=== PATIENT | female | born 2000 | race Caucasian/White ===

== ENCOUNTER 2023-05-11 21:22 | Inpatient (IN) | payer OTHER, SELFPAY ==
[2023-05-11 21:27] VITALS: BMI 22.8
[2023-05-11 21:30] VITALS: BP 118/84; PULSE 86; RESP 18; TEMP 36.9; O2SAT 99
[2023-05-11] MEDS: traZODone HCL 50 MG TABLET PO (23:28)
[2023-05-11] MEDS: hydrOXYzine HCL 25 MG TABLET PO (23:28)
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
--- NOTE | 2023-05-11 23:52 | PC.NURSE ---
PT refuses annual flu vaccine.
--- NOTE | 2023-05-11 23:54 | PC.NURSE ---
loan approver and skin check completed with Eugenia Little RN. No skin concerns, no contraband found.
--- NOTE | 2023-05-11 23:54 | PC.NURSE ---
PT given opportunity to obtain phone numbers @ admission. PT understands phone will be locked away until discharge.
[2023-05-12 06:00] VITALS: BP 103/59; PULSE 99; RESP 18; TEMP 36.2; O2SAT 100
[2023-05-12 07:58] LABS: Estimated Average Glucose 97 mg/dL
--- NOTE | 2023-05-12 08:45 | HO.PSYADMNOT ---
HPI Date of Service: 05/12/23 Chief Complaint: Major depressive d/o, singeepisode, severe Sources of Information: patient interviewed, chart reviewed and crisis/core team assessment reviewed HPI Subjective Notes: Mckay Warning (given and shows understanding) and Conditional Voluntary Narrative: Ms. Magaña is a 22 year-old woman who self presented to [facility] due to increase depression, suicidal ideation with plan to ingest 99% rubbing alcohol. Pt reported no particular trigger but feeling like nobody loves me enough. Pt reports hx of self injurious behaviors (cutting) up until the age of 16. Utox was negative. This is her first inpatient psychiatric admission. On the unit, pt presents with a bright affect. She reports she has been in a caregiver role, caring for her sister, and friends. She reports no one cares for me. She endorses feelings of emptiness. She reports she has been reading about her symptoms and thinks she has more than depression. Pt reports she enjoys school and loves her career. She reports she feels she needs to be the center of attention and when this doesn't happen, she feels in distress. She denies feeling depressed but anxious. She reports feeling even more anxious when there is no structure and she does not know what to expect. She denies Hx of VH/AH. Pt reports sleeping well. Past Psychiatric History: Inpatient: none OP: none Past trial: lexapro Hx of suicide attempt: none Medical Evaluation Reviewed: Yes [facility] Family History: none Social History: Pt raised by parents. She has younger sister. Currently senior at [employer] Substance History: None Trauma History: denies Diagnostics Vital Signs (24Hr): Vital Signs - 24 hr 05/11/23 21:30 Temperature 98.4 F Pulse Rate 86 Respiratory Rate 18 Blood Pressure 118/84 Pulse Oximetry 99 Oxygen Delivery Method Room Air BMI result Body Mass Index 22.8 Labs 05/12/23 07:20 Labs: Laboratory Results - last 48 hr 05/12/23 07:20 Estimat Average Glucose 97 Hemoglobin A1c % 5.0 Meds/Allergies Meds Home Medications Medication Instructions Recorded Confirmed Type albuterol sulfate 90 mcg/actuation 1 puff inhalation Q4H PRN 05/11/23 05/11/23 History aerosol inhaler Bronchospasm escitalopram oxalate 10 mg tablet 10 mg PO DAILY 09/30/23 09/30/23 History Allergies Allergies Allergy/AdvReac Type Severity Reaction Status Date / Time amoxicillin Allergy Hives Verified 05/11/23 21:27 Mental Status Exam Mental Status Exam Narrative: Appearance:casually groomed, good hygiene, in NAD Behavior: cooperative, overly friendly Psychomotor: no agitation or retardation noted Speech: clear, normal rate/rhythm, spontaneous TP: linear TC: no s/s of psychosis, overwhelmed but feeling better Mood: better Affect: bright, slightly expansive Si: denies HI: denies VH/AH: none Delusions: none Insight/judgment: fair x 2. Memory/cog: alert, oriented x 3. Assessment & Plan Assessment & Plan (1) Borderline personality disorder in adult: Status: Acute Code(s): F60.3 - Borderline personality disorder Plan Ms. Magaña is a 22 year-old woman who describes symptoms of chronic sense of emptiness, mood deregulation, fear of abandonment, feelings of rejection when not the center of attention. She denies feeling depressed and today denies any thoughts of wanting to harm herself but also reports this can change fairly quickly. She endorses anxiety in context of anticipated sense of rejection or abandonment. She reports she has been reading and does not feel her condition is just depression. We discussed characteristics of BPD, which pt appears to identify with. R/O Bipolar Dirsorder type 2. We discussed risks, benefits and alternative treatment options, we discussed starting lamictal for mood deregulation. We also discussed importance of psychotherapy interventions like DBT for self-regulation, decrease self harm. PLAN 1. Admit to M5, CV, 15 minutes checks 2. Start lamictal 25mg po qhs 3. obtain collateral information 4. Aftercare planning Patient educated on: diagnosis and medication risk/benefits Reason for continued inpatient stay Substantial Risk for: harm to self Statement Statement: I have reviewed the history and physical and performed a pertinent examination on my patient. No changes have occurred unless specified. If the History and Physical was not performed prior to admission, the Hospitalist's service will be consulted for completing the admission physical. Time Spent With Patient Time: Total time managing care of this patient today ____ minutes.
[2023-05-12] MEDS: Escitalopram Oxalate 10 MG TABLET PO (09:01)
[2023-05-12] MEDS: Nicotine Polacrilex Lozenge 2 MG LOZENGE BUCCAL ×3 (09:42→20:33)
[2023-05-12] MEDS: hydrOXYzine HCL 25 MG TABLET PO ×2 (10:10→19:42)
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
[2023-05-12 12:17] LABS: Alanine Aminotransferase 13 U/L (0-31); Albumin Level 4.6 g/dL (3.5-5.0); Alkaline Phosphatase 61 U/L (39-117); Anion Gap 16 (12-20); Aspartate Amino Transferase 19 U/L (5-31); Blood Urea Nitrogen 10 mg/dL (9-16); Calcium 9.5 mg/dL (8.4-10.2); Carbon Dioxide 23 mmol/L (22-29); Chloride 105 mmol/L (96-108); Cholesterol 123 mg/dL (<200); Creatinine Clr Calc Pharmacy 105.4; Estimated Glomerular Filt Rate > 60; Folate 14.2 ng/mL (> or = 4.0); Glucose Fasting 91 mg/dL (60-99); HDL Cholesterol 61 mg/dL (>40); LDL Cholesterol Calculated 51 mg/dL (<100); Potassium 3.9 mmol/L (3.3-5.1); Sodium 140 mmol/L (135-145); Thyroid Stimulating Hormone 0.89 uIU/mL (0.32-4.0); Total Protein 7.7 g/dL (6.5-8.0); Triglycerides 55 mg/dL (<150); Vitamin B12 611 pg/mL (200-900)
[2023-05-12 16:30] VITALS: BP 117/57; PULSE 72; TEMP 36.5
[2023-05-12] MEDS: lamoTRIgine 25 MG TABLET PO (19:42)
[2023-05-12] MEDS: traZODone HCL 50 MG TABLET PO (23:56)
[2023-05-13] MEDS: Escitalopram Oxalate 10 MG TABLET PO (09:20)
[2023-05-13 09:25] VITALS: BP 116/70; PULSE 106; RESP 18; TEMP 36.4; O2SAT 100
[2023-05-13] MEDS: hydrOXYzine HCL 25 MG TABLET PO ×2 (12:20→19:08)
[2023-05-13] MEDS: Nicotine Polacrilex Lozenge 2 MG LOZENGE BUCCAL (17:06)
[2023-05-13 18:00] VITALS: BP 118/81; PULSE 94; RESP 18; TEMP 36.8; O2SAT 98
--- NOTE | 2023-05-13 18:25 | HO.PSYCHPN ---
Subjective Subjective Date of Service: 05/13/23 Reason For Visit: Major depressive d/o, singeepisode, severe Subjective Notes: Conditional Voluntary Healthcare Proxy: No Guardianship: No Medical Problems Affecting Mental Status: No Interim History: Pt reivewed history of symptoms and illness, med trials and concerns about navigation of my life with a mental illness . Struggles with the feelings that no one cares, family she believes has been emotionally neglectful and her response to this deprivation has been to over extend and give of herself and lacking ability to receive. Review of meds, discussed prn for anxiety. Will trial Olanzapine low dose for added mood stabilization. Pt interested in DBT, OP work. Will prepare DBT literature for her review. Medication Compliance: Yes Side effects from medications: No Attending Groups: Yes Review of Systems Acute medical concerns: No Medical Review of Systems: unchanged Mental Status Exam Mental Status Exam Patient Appearance: Appropriate Patient Orientation: Person, Place, Time and Situation Level of Consciousness: Alert Patient Behavior: Appropriate, Talkative, Cooperative and Good Eye Contact Mood Description: Anxious and Expansive Affect Description: Anxious Patient Cognition Impaired: No Ability to Follow Directions: Good Speech Pattern: Spontaneous Speech Memory Description: Intact Hallucinations: None Thought Process: Goal Oriented Thought Content: positive for Goal Oriented Depressive Symptoms: Increased Anxiety and Thoughts of /Suicide (denies) Judgement: Good Diagnostics Vital Signs (24Hr): Vital Signs - 24 hr 05/13/23 09:25 Temperature 97.6 F Pulse Rate 106 H Respiratory Rate 18 Blood Pressure 116/70 Pulse Oximetry 100 Oxygen Delivery Method Room Air BMI result Body Mass Index 22.8 Labs 05/12/23 07:20 Labs: Laboratory Results - last 48 hr 05/12/23 07:20 Sodium 140 Potassium 3.9 Chloride 105 Carbon Dioxide 23 Anion Gap 16 BUN 10 Creatinine 0.79 Estim Creat Clear Calc 105.4 Estimated GFR > 60 Fasting Glucose 91 Estimat Average Glucose 97 Hemoglobin A1c % 5.0 Calcium 9.5 Total Bilirubin 1.0 AST 19 ALT 13 Alkaline Phosphatase 61 Total Protein 7.7 Albumin 4.6 Triglycerides 55 Cholesterol 123 LDL Cholesterol, Calc 51 HDL Cholesterol 61 Vitamin B12 611 Folate 14.2 TSH 0.89 Medications Medications Current Medications Acetaminophen (Acetaminophen 325 Mg Tablet) 650 mg PO Q6H PRN PRN Reason: Headache/Pain Mild Scale (1-3) Al Hydroxide/Mg Hydroxide (Magnesium Hydrox/Alum Hydrox 30 Ml Oral.Susp) 30 ml PO Q6H PRN PRN Reason: Heartburn/Nausea Albuterol Sulfate (Albuterol Sulfate 90 Mcg 8 Gm Inhaler) 1 puff INHALE Q4H PRN PRN Reason: Bronchospasm Escitalopram Oxalate (Escitalopram Oxalate 10 Mg Tablet) 10 mg PO BEDTIME SHEILA Hydroxyzine HCl (Hydroxyzine Hcl 25 Mg Tablet) 25 mg PO Q6H PRN PRN Reason: Anxiety Last Admin: 05/13/23 12:20 Dose: 25 mg Lamotrigine (Lamotrigine 25 Mg Tablet) 25 mg PO BEDTIME SHEILA Last Admin: 05/12/23 19:42 Dose: 25 mg Magnesium Hydroxide (Milk Of Magnesia 30 Ml Oral.Susp) 30 ml PO DAILY PRN PRN Reason: Constipation Nicotine (Nicotine 14 Mg Patch.Td24) 14 mg TRANSDERMA DAILY PRN PRN Reason: Nicotine Cravings Nicotine Polacrilex (Nicotine Polacrilex Lozenge 2 Mg Lozenge) 2 mg BUCCAL Q2H PRN PRN Reason: Nicotine Cravings Last Admin: 05/13/23 17:06 Dose: 2 mg Olanzapine (Olanzapine 2.5 Mg Tablet) 2.5 mg PO BID PRN PRN Reason: anxiety, lability Trazodone HCl (Trazodone Hcl 50 Mg Tablet) 50 mg PO BEDTIME PRN PRN Reason: Insomnia Last Admin: 05/12/23 23:56 Dose: 50 mg Allergies Allergies Allergy/AdvReac Type Severity Reaction Status Date / Time amoxicillin Allergy Hives Verified 05/11/23 21:27 Assessment & Plan Assessment & Plan (1) Borderline personality disorder in adult: Status: Acute Code(s): F60.3 - Borderline personality disorder Plan Ms. Magaña is a 22 year-old woman who describes symptoms of chronic sense of emptiness, mood deregulation, fear of abandonment, feelings of rejection when not the center of attention. She denies feeling depressed and today denies any thoughts of wanting to harm herself but also reports this can change fairly quickly. She endorses anxiety in context of anticipated sense of rejection or abandonment. She reports she has been reading and does not feel her condition is just depression. We discussed characteristics of BPD, which pt appears to identify with. R/O Bipolar Dirsorder type 2. We discussed risks, benefits and alternative treatment options, we discussed starting lamictal for mood deregulation. We also discussed importance of psychotherapy interventions like DBT for self-regulation, decrease self harm. PLAN 1. Admit to M5, CV, 15 minutes checks 2. Start lamictal 25mg po qhs 3. obtain collateral information 4. Aftercare planning 05/13/23: Olanzapine 2.5 mg bid prn anxiety,lability. Patient educated on: medication risk/benefits and therapeutic strategies Informed Consent: understands Reason for continued inpatient stay Substantial Risk for: rapid decompensation Time Spent With Patient Time: Total time managing care of this patient today ____ minutes.
[2023-05-13] MEDS: lamoTRIgine 25 MG TABLET PO (21:15)
[2023-05-13] MEDS: traZODone HCL 50 MG TABLET PO (21:15)
[2023-05-13] MEDS: OLANZapine 2.5 MG TABLET PO (21:16)
[2023-05-14 07:55] VITALS: BP 117/59; PULSE 94; RESP 18; TEMP 36; O2SAT 98
[2023-05-14] MEDS: Nicotine Polacrilex Lozenge 2 MG LOZENGE BUCCAL ×3 (09:29→20:26)
--- NOTE | 2023-05-14 10:09 | HO.PSYCHPN ---
Subjective Subjective Date of Service: 05/14/23 Reason For Visit: Major depressive d/o, singeepisode, severe Subjective Notes: Conditional Voluntary Healthcare Proxy: No Guardianship: No Medical Problems Affecting Mental Status: No Interim History: Preparing for discharge 05/15 on a three day notice. DBT orientation handouts given. Pt to review. No med adverse effects, active in milieu and looking forward to beginning out patient treatment. Talking with her mother today and beginning to set some limits on family and their involvement in her life. Medication Compliance: Yes Side effects from medications: No Attending Groups: Yes Review of Systems Acute medical concerns: No Medical Review of Systems: unchanged Mental Status Exam Mental Status Exam Patient Appearance: Appropriate Patient Orientation: Person, Place, Time and Situation Level of Consciousness: Alert Patient Behavior: Appropriate, Talkative, Cooperative and Good Eye Contact Mood Description: Anxious and Expansive Affect Description: Anxious Patient Cognition Impaired: No Ability to Follow Directions: Good Speech Pattern: Spontaneous Speech Memory Description: Intact Hallucinations: None Thought Process: Goal Oriented Thought Content: positive for Goal Oriented Depressive Symptoms: Increased Anxiety and Thoughts of /Suicide (denies) Judgement: Good Diagnostics Vital Signs (24Hr): Vital Signs - 24 hr 05/13/23 18:00 05/14/23 07:55 Temperature 98.3 F 96.8 F Pulse Rate 94 94 Respiratory Rate 18 18 Blood Pressure 118/81 117/59 L Pulse Oximetry 98 98 Oxygen Delivery Method Room Air Room Air BMI result Body Mass Index 22.8 Labs 05/12/23 07:20 Labs: Laboratory Results - last 48 hr 05/12/23 07:20 Sodium 140 Potassium 3.9 Chloride 105 Carbon Dioxide 23 Anion Gap 16 BUN 10 Creatinine 0.79 Estim Creat Clear Calc 105.4 Estimated GFR > 60 Fasting Glucose 91 Calcium 9.5 Total Bilirubin 1.0 AST 19 ALT 13 Alkaline Phosphatase 61 Total Protein 7.7 Albumin 4.6 Triglycerides 55 Cholesterol 123 LDL Cholesterol, Calc 51 HDL Cholesterol 61 Vitamin B12 611 Folate 14.2 TSH 0.89 Medications Medications Current Medications Acetaminophen (Acetaminophen 325 Mg Tablet) 650 mg PO Q6H PRN PRN Reason: Headache/Pain Mild Scale (1-3) Al Hydroxide/Mg Hydroxide (Magnesium Hydrox/Alum Hydrox 30 Ml Oral.Susp) 30 ml PO Q6H PRN PRN Reason: Heartburn/Nausea Albuterol Sulfate (Albuterol Sulfate 90 Mcg 8 Gm Inhaler) 1 puff INHALE Q4H PRN PRN Reason: Bronchospasm Escitalopram Oxalate (Escitalopram Oxalate 10 Mg Tablet) 10 mg PO BEDTIME SHEILA Hydroxyzine HCl (Hydroxyzine Hcl 25 Mg Tablet) 25 mg PO Q6H PRN PRN Reason: Anxiety Last Admin: 05/13/23 19:08 Dose: 25 mg Lamotrigine (Lamotrigine 25 Mg Tablet) 25 mg PO BEDTIME SHEILA Last Admin: 05/13/23 21:15 Dose: 25 mg Magnesium Hydroxide (Milk Of Magnesia 30 Ml Oral.Susp) 30 ml PO DAILY PRN PRN Reason: Constipation Nicotine (Nicotine 14 Mg Patch.Td24) 14 mg TRANSDERMA DAILY PRN PRN Reason: Nicotine Cravings Nicotine Polacrilex (Nicotine Polacrilex Lozenge 2 Mg Lozenge) 2 mg BUCCAL Q2H PRN PRN Reason: Nicotine Cravings Last Admin: 05/14/23 09:29 Dose: 2 mg Olanzapine (Olanzapine 2.5 Mg Tablet) 2.5 mg PO BID PRN PRN Reason: anxiety, lability Last Admin: 05/13/23 21:16 Dose: 2.5 mg Trazodone HCl (Trazodone Hcl 50 Mg Tablet) 50 mg PO BEDTIME PRN PRN Reason: Insomnia Last Admin: 05/13/23 21:15 Dose: 50 mg Allergies Allergies Allergy/AdvReac Type Severity Reaction Status Date / Time amoxicillin Allergy Hives Verified 05/11/23 21:27 Assessment & Plan Assessment & Plan (1) Borderline personality disorder in adult: Status: Acute Code(s): F60.3 - Borderline personality disorder Plan Ms. Magaña is a 22 year-old woman who describes symptoms of chronic sense of emptiness, mood deregulation, fear of abandonment, feelings of rejection when not the center of attention. She denies feeling depressed and today denies any thoughts of wanting to harm herself but also reports this can change fairly quickly. She endorses anxiety in context of anticipated sense of rejection or abandonment. She reports she has been reading and does not feel her condition is just depression. We discussed characteristics of BPD, which pt appears to identify with. R/O Bipolar Dirsorder type 2. We discussed risks, benefits and alternative treatment options, we discussed starting lamictal for mood deregulation. We also discussed importance of psychotherapy interventions like DBT for self-regulation, decrease self harm. PLAN 1. Admit to M5, CV, 15 minutes checks 2. Start lamictal 25mg po qhs 3. obtain collateral information 4. Aftercare planning 05/14/23 Discharge 05/15/23 on a three day notice. Patient educated on: medication risk/benefits and therapeutic strategies Informed Consent: understands Reason for continued inpatient stay Substantial Risk for: rapid decompensation Time Spent With Patient Time: Total time managing care of this patient today ____ minutes.
[2023-05-14] MEDS: hydrOXYzine HCL 25 MG TABLET PO ×2 (12:37→18:26)
[2023-05-14] MEDS: Albuterol Sulfate 90 MCG 8 GM INHALER 1 PUFF INHALE (12:38)
[2023-05-14 18:00] VITALS: BP 119/75; PULSE 100; RESP 18; TEMP 36.5; O2SAT 97
[2023-05-14] MEDS: OLANZapine 2.5 MG TABLET PO (20:25)
[2023-05-14] MEDS: lamoTRIgine 25 MG TABLET PO (20:26)
[2023-05-14] MEDS: Escitalopram Oxalate 10 MG TABLET PO (20:27)
[2023-05-14] MEDS: traZODone HCL 50 MG TABLET PO (23:36)
[2023-05-15 08:57] VITALS: BP 116/56; PULSE 75; RESP 18; TEMP 36.2; O2SAT 98
[2023-05-15] MEDS: hydrOXYzine HCL 25 MG TABLET PO (09:13)
[2023-05-15] MEDS: Albuterol Sulfate 90 MCG 8 GM INHALER 1 PUFF INHALE (09:13)
--- NOTE | 2023-05-15 16:09 | PM.PSYDC ---
DS: Providers Provider Date of Service: 05/15/23 Date of admission: 05/11/23 21:22 Date of discharge: 05/15/23 Primary care physician: Unknown Physician Admitting clinician: Marleny Bullard Attending physician on admission: Carrillo Root Consults: 05/11/23 23:09 Consult to Hospitalist Routine Comment: Consulting Provider: Hospitalist Reason For Exam: medical H&P Attending physician on discharge: Carrillo Root Discharging clinician: Araceli Montano DS: Diagnosis Discharge Diagnosis (1) Borderline personality disorder in adult: Status: Acute DS: Medications Discharge Medications Home Medications: Previous Rx's Medication Instructions Recorded albuterol sulfate 90 mcg/actuation 1 puff inhalation Q4H PRN 05/14/23 aerosol inhaler Bronchospasm #1 inhaler escitalopram oxalate 10 mg tablet 10 mg PO DAILY #30 tabs 05/14/23 hydroxyzine HCl 25 mg tablet 25 mg PO Q6H PRN Anxiety #30 tabs 05/14/23 lamotrigine 25 mg tablet 25 mg PO BEDTIME #30 tabs 05/14/23 nicotine (polacrilex) 2 mg buccal 2 mg buccal Q2H PRN Nicotine 05/14/23 lozenge Cravings #72 ea olanzapine 2.5 mg tablet 2.5 mg PO BID PRN anxiety, 05/14/23 lability #60 tabs trazodone 50 mg tablet 50 mg PO BEDTIME PRN Insomnia #30 05/14/23 tabs Mental Status Exam Mental Status Exam Patient Appearance: Appropriate Patient Orientation: Person, Place, Time and Situation Level of Consciousness: Alert Patient Behavior: Appropriate, Talkative, Cooperative and Good Eye Contact Mood Description: Anxious and Expansive Affect Description: Anxious Patient Cognition Impaired: No Ability to Follow Directions: Good Speech Pattern: Spontaneous Speech Memory Description: Intact Hallucinations: None Thought Process: Goal Oriented Thought Content: positive for Goal Oriented Depressive Symptoms: Increased Anxiety and Thoughts of /Suicide (denies) Judgement: Good Data Data Completed and Pending Completed studies during hospitalization [Text1]: 05/12/23 07:20 Sodium 140 Potassium 3.9 Chloride 105 Carbon Dioxide 23 Anion Gap 16 BUN 10 Creatinine 0.79 Estim Creat Clear Calc 105.4 Estimated GFR > 60 Fasting Glucose 91 Estimat Average Glucose 97 Hemoglobin A1c % 5.0 Calcium 9.5 Total Bilirubin 1.0 AST 19 ALT 13 Alkaline Phosphatase 61 Total Protein 7.7 Albumin 4.6 Triglycerides 55 Cholesterol 123 LDL Cholesterol, Calc 51 HDL Cholesterol 61 Vitamin B12 611 Folate 14.2 TSH 0.89 DS: Summary Hospital Course Hospital Course: Admission to adult psychiatry for exacerbation of symptoms of depression with SI. Pt, once admitted, was able to discuss the intensity of feeling that no one loves her enough and that her distress increases when she is not the focus of family attention. She discussed being unable to set limits, being over-giving of her time and energies without response, having difficult receiving attention from others and chronic feelings of emptiness. Lamictal was initiated along with Olanzapine prn. Pt participated in the milieu, but believes she will have greater treatment progress in an out patient milieu, therefore she signed a three day notice of intent and discharged to community providers. She was able to fully contract for her safety and reported her SI was resolved. Time spent discussing smoking cessation with patient: 3 to 10 minutes Status at Discharge Functional status at discharge: independent ambulation Overall status at discharge: patient is progressing back to baseline Time Spent with Patient Time attestation: Total time managing care of this patient today ____ minutes. Time spent: Greater than 30 minutes Discharge Plan Discharge Anticipated Discharge Date/Time: 05/15/23 12:42 Patient Disposition: Home, Self-Care Discharge Diagnosis: Bipolar Disorder Borderline Personality Disorder Referrals: Clinical and Support Options Intake with [facility] [Other] - 05/22/23 3:00 pm [facility] [Other] - 1 Week [facility] [Other] - 1 Week (email them for transportation assistance. Give them a few days notice. email: [email or web address]) [email or web address] MIRANDA [Other] - 06/13/23 2:30 pm (IN OFFICE) Discharge Medications: New nicotine (polacrilex) 2 mg Lozenge 2 mg buccal Q2H PRN (Reason: Nicotine Cravings) Qty: 72 0RF trazodone 50 mg Tablet 50 mg PO BEDTIME PRN (Reason: Insomnia) Qty: 30 0RF olanzapine 2.5 mg Tablet 2.5 mg PO BID PRN (Reason: anxiety, lability) Qty: 60 0RF lamotrigine 25 mg Tablet 25 mg PO BEDTIME Qty: 30 0RF hydroxyzine HCl 25 mg Tablet 25 mg PO Q6H PRN (Reason: Anxiety) Qty: 30 0RF Continued albuterol sulfate 90 mcg/actuation HFA aerosol inhaler 1 puff inhalation Q4H PRN (Reason: Bronchospasm) Qty: 1 0RF escitalopram oxalate 10 mg tablet 10 mg PO DAILY Qty: 30 0RF Discharge Orders: Discharge Order (Routine); Ordered 05/15/23 Ordered By: Araceli Montano Diet: Advance to usual diet Activity on Discharge: As tolerated Stand Alone Forms: Patient Portal Discharge page, Community Support Care Plan Goals: Mood and Behavioral Stabilization Health Concerns: Mood and Behavioral Stabilization Plan of Treatment: Attend scheduled appointments Take medications as directed Assessment: Pt interviewed prior to discharge and found to be fully oriented and without SI/HI. Pt has insight and demonstrates good judgment in terms of wanting to pursue treatment. Pt is not in imminent risk of harm to self or others and has a safety plan that includes presenting to the closest ER or calling 911 if feeling unsafe. Pt has been observed closely by nursing and unit staff throughout admission. Pt has not engaged in any behaviors that suggest dangerousness to self or others and had demonstrated appropriate behaviors and impulse control. Three day notice filed by pt. Discharge Date/Time: 05/15/23 11:49
== END 2023-05-15 11:49 | disposition home or self-care (01) | DRG 883 ==
PROVIDERS: Social Worker; Admitting Provider Psychiatry & Neurology Psychiatry; Visit Provider Clinical Nurse Specialist Psychiatric/Mental Health, Adult
DX: F60.3 Borderline personality disorder (principal); R45.851 Suicidal ideations; F31.9 Bipolar disorder, unspecified; Z71.6 Tobacco abuse counseling; J45.20 Mild intermittent asthma, uncomplicated; F17.290 Nicotine dependence, other tobacco product, uncomplicated; Z79.899 Other long term (current) drug therapy
CPT/HCPCS: 36415; 80053; 80061; 82607; 82746; 83036; 84443

== ENCOUNTER → 2023-05-11 21:22 | Outpatient (BNV) | payer OTHER, SELFPAY | PROVIDERS: Admitting Provider Psychiatry & Neurology Psychiatry; Visit Provider Student in an Organized Health Care Education/Training Program | DX: J45.20 Mild intermittent asthma, uncomplicated (principal) | CPT/HCPCS: 99221 ==

== ENCOUNTER → 2023-05-11 21:22 | Outpatient (BNV) | payer OTHER, SELFPAY | PROVIDERS: Admitting Provider Psychiatry & Neurology Psychiatry; Visit Provider Social Worker | DX: F60.3 Borderline personality disorder (principal) | CPT/HCPCS: 90792; 99231; 99232; 99239 ==